=== PATIENT | female | born 1985 | race Caucasian/White ===

== ENCOUNTER → 2022-06-03 | Outpatient (CLI) | payer BC ==
[~2022-06-03] MED LIST: AJOV225I SC; CETI10CH PO; CYAN500T14 PO; IMIT100T PO; LYRI150C PO; METF10004 PO; MIRE1IUD IU; PROAAER10 INH; SING10TA32 PO; SPIR100T3 PO; UBRO100T PO
== END ==
LOC: M LABSMTC 09:19
PROVIDERS: ATTEND Anesthesiology
DX: Z01.812 Encounter for preprocedural laboratory examination (principal)

== ENCOUNTER 2022-06-07 09:01 | Day surgery (SDC) | payer BC ==
[~2022-06-07] VITALS: Ht 167.6 cm; Wt 69.8 kg
[~2022-06-07 09:01] MED LIST changes: +dexameTHASONE 4 MG/ML 1ML VIAL (J1100 PER 1MG) IV ONE
[2022-06-07] MEDS ORDERED: LR 1,000 ML IV SCH ×2 (09:15→11:35)
[2022-06-07] MEDS ORDERED: FLON1SPR (09:31)
[2022-06-07] MEDS ORDERED: LIDOCAINE W/EPINEPHRINE 1% 20ML VIAL As Ordered ONE (10:02)
[2022-06-07] MEDS ORDERED: EPINEPHrine 1MG/ML INJ 30ML MD-VIAL As Ordered ONE (10:02)
[2022-06-07] MEDS ORDERED: MIDAZOLAM INJ 2MG/2ML VIAL (J2250 PER 1MG) As Ordered ONE (10:37)
[2022-06-07] MEDS ORDERED: fentaNYL 250 MCG/5 ML INJECTION As Ordered ONE (10:37)
[2022-06-07] MEDS ORDERED: SODIUM CHLORIDE 0.9% NASAL GEL 15GM (AYR) As Ordered ONE (10:40)
[2022-06-07] MEDS ORDERED: LIDOCAINE 2% 100MG/5ML SDV (FOR ANES.) As Ordered ONE (10:43)
[2022-06-07] MEDS ORDERED: ROCURONIUM BROMIDE 50 MG/5 ML VIAL As Ordered ONE (10:43)
[2022-06-07] MEDS ORDERED: dexameTHASONE 4 MG/ML 1ML VIAL (J1100 PER 1MG) As Ordered ONE (10:43)
[2022-06-07] MEDS ORDERED: SUGAMMADEX SODIUM 500 MG/5 ML VIAL (BRIDION) As Ordered ONE (10:43)
[2022-06-07] MEDS ORDERED: propofoL 200 MG/20 ML VIAL As Ordered ONE (10:43)
[2022-06-07] MEDS ORDERED: ONDANSETRON 4MG 2ML VIAL As Ordered ONE (10:43)
[2022-06-07] MEDS ORDERED: PHENYLephrine 500MCG 5ML (100MCG/ML) SYRINGE As Ordered ONE (10:44)
[2022-06-07] MEDS ORDERED: ACETAMINOPHEN 1000MG 100ML IV BTL (OFIRMEV) (J0131 PER 10MG) As Ordered ONE (10:59)
[2022-06-07] MEDS ORDERED: ONDANSETRON 4MG 2ML VIAL IV PRN (11:35)
[2022-06-07] MEDS ORDERED: MORPHINE 2 MG/ML 1ML VIAL IV PRN (11:35)
[2022-06-07] MEDS ORDERED: fentaNYL 100 MCG/2 ML INJECTION IV PRN (11:35)
[2022-06-07] MEDS ORDERED: METOCLOPRAMIDE INJ 10MG/2ML VIAL (J2765 PER 1) IV ONE (12:15)
[2022-06-07] MEDS: oxyCODONE 5MG TAB PO PRN ×2 (12:25→13:12)
[2022-06-07 13:58] VITALS: BP 107/69
== END 2022-06-07 14:00 | disposition home or self-care (01) ==
LOC: M SDC 09:01
PROVIDERS: ATTEND Otolaryngology
DX: J34.2 Deviated nasal septum (principal); J34.3 Hypertrophy of nasal turbinates; G47.33 Obstructive sleep apnea (adult) (pediatric); Z79.899 Other long term (current) drug therapy
CPT/HCPCS: 30520; 30801; 81025; 88300; J0131; J0171; J1100; J2250; J2370; J2405; J2765; J3010

== ENCOUNTER → 2022-10-17 | Outpatient (REF) | payer BC ==
[~2022-10-17] MED LIST changes: +FLON1SPR; -dexameTHASONE 4 MG/ML 1ML VIAL (J1100 PER 1MG) IV ONE
== END ==
LOC: M LAB REF 17:20
PROVIDERS: ATTEND Physician Assistant Medical
DX: J01.00 Acute maxillary sinusitis, unspecified (principal)